=== PATIENT | female | born 2000 | race Caucasian/White ===

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

== ENCOUNTER 2018-03-20 04:34 | Emergency (ER) | payer OTHER ==
[~2018-03-20] VITALS: Ht 157.4 cm; Wt 70.3 kg
[~2018-03-20 04:34] MED LIST changes: +MACROBID100 M1 PO
[2018-03-20 05:42] LABS: BILIRUBIN NEGATIVE (NEGATIVE); BLOOD 2+ (NEGATIVE); CLARITY SL CLOUDY (CLEAR); COLOR YELLOW (YELLOW); GLUCOSE NEGATIVE (NEGATIVE); KETONE NEGATIVE (NEGATIVE); LEUKO ESTERASE TRACE (NEGATIVE); NITRITE NEGATIVE (NEGATIVE); PH 6.5 (5.0-9.0); SPECIFIC GRAVITY <= 1.005 (1.005-1.030); UROBILINOGEN 0.2 E.U./dl (0.2-1.0)
[2018-03-20 05:50] LABS: BACTERIA 2+
== END 2018-03-20 06:58 | disposition home or self-care (01) ==
LOC: ED 04:34
PROVIDERS: Emergency Medicine
DX: O46.93 Antepartum hemorrhage, unspecified, third trimester (principal); N93.0 Postcoital and contact bleeding; Z3A.36 36 weeks gestation of pregnancy

== ENCOUNTER 2018-04-13 15:22 | Emergency (ER) | payer OTHER ==
[~2018-04-13] VITALS: Ht 154.9 cm; Wt 77.1 kg
[2018-04-13] MEDS ORDERED: PROAIR HFA8.5 GM INH (15:28)
[2018-04-13] MEDS ORDERED: ZITHROMAX250 MG PO (15:28)
== END 2018-04-13 16:09 | disposition home or self-care (01) ==
LOC: ED 15:22
DX: O99.513 Diseases of the respiratory system complicating pregnancy, third trimester (principal); J06.9 Acute upper respiratory infection, unspecified; Z87.891 Personal history of nicotine dependence; Z3A.39 39 weeks gestation of pregnancy

== ENCOUNTER 2019-09-30 15:50 | Emergency (ER) | payer OTHER ==
[~2019-09-30] VITALS: Ht 154.9 cm; Wt 68.0 kg
[~2019-09-30 15:50] MED LIST changes: +PROAIR HFA8.5 GM INH; +ZITHROMAX250 MG PO
[2019-09-30] MEDS ORDERED: TYLENOL325 M1 PO (16:17)
[2019-09-30] MEDS ORDERED: AMOXICILLIN500 M3 PO (16:17)
[2019-09-30] MEDS ORDERED: NAPROSYN500 MG PO (16:17)
== END 2019-09-30 16:19 | disposition home or self-care (01) ==
LOC: ED 15:50
DX: K08.89 Other specified disorders of teeth and supporting structures (principal); Z79.899 Other long term (current) drug therapy; Z79.2 Long term (current) use of antibiotics; Z96.5 Presence of tooth-root and mandibular implants

== ENCOUNTER → 2020-05-18 | Outpatient (CLI) | payer OTHER ==
[~2020-05-18] MED LIST changes: +AMOXICILLIN500 M3 PO; +TYLENOL325 M1 PO
== END | disposition home or self-care (01) ==
LOC: COVID19 13:40
PROVIDERS: ATTEND Internal Medicine
DX: Z20.828 Contact with and (suspected) exposure to other viral communicable diseases (principal)

== ENCOUNTER → 2020-08-08 | Outpatient (CLI) | payer OTHER | END | disposition home or self-care (01) | LOC: US 10:00 | PROVIDERS: ATTEND Nurse Practitioner Women's Health | DX: Z34.82 Encounter for supervision of other normal pregnancy, second trimester (principal); Z3A.17 17 weeks gestation of pregnancy ==

== ENCOUNTER → 2020-08-14 | Outpatient (CLI) | payer OTHER ==
[2020-08-16 02:06] LABS: AFP MOM 1.19 (.); AFP VALUE 51.3 ng/mL (.); DIA MOM 0.86 (.); DIA VALUE 136.18 pg/mL (.); DSR (BY AGE) 1 IN 1121 (.); DSR (SECOND TRIMESTER) 1 IN 10000 (.); GEST. AGE ON COLLECTION DATE 18.3 WEEKS (.); GESTATIONAL AGE BASED ON As provided (.); HCG MOM 1.63 (.); HCG VALUE 42339 mIU/mL (.); INSULIN DEPENDENT DIABETES No (.); MATERNAL AGE AT EDD 22.3 yr (.); MULTIPLE GESTATION No (.); OSBR RISK 1 IN 6704 (.); RACE Caucasian (.); T18 RISK Not increased (.); TEST RESULTS *Screen Negative* (.); UE3 MOM 1.87 (.); WEIGHT 162 lbs (.)
== END | disposition home or self-care (01) ==
LOC: LAB 08:01
PROVIDERS: ATTEND Nurse Practitioner Women's Health
DX: O09.299 Supervision of pregnancy with other poor reproductive or obstetric history, unspecified trimester (principal); O99.810 Abnormal glucose complicating pregnancy; Z3A.17 17 weeks gestation of pregnancy; Z14.1 Cystic fibrosis carrier; Z82.79 Family history of other congenital malformations, deformations and chromosomal abnormalities

== ENCOUNTER → 2020-09-30 | Outpatient (CLI) | payer OTHER | END | disposition home or self-care (01) | LOC: US 11:30 | PROVIDERS: ATTEND Obstetrics & Gynecology | DX: O32.1XX0 Maternal care for breech presentation, not applicable or unspecified (principal); Z3A.24 24 weeks gestation of pregnancy ==

== ENCOUNTER → 2020-11-06 | Outpatient (CLI) | payer OTHER | END | disposition home or self-care (01) | LOC: US 13:00 | PROVIDERS: ATTEND Nurse Practitioner Women's Health | DX: Z34.82 Encounter for supervision of other normal pregnancy, second trimester (principal); Z3A.30 30 weeks gestation of pregnancy ==

== ENCOUNTER → 2020-11-11 | Outpatient (CLI) | payer OTHER | END | disposition home or self-care (01) | LOC: LAB 10:32 | PROVIDERS: ATTEND Obstetrics & Gynecology Maternal & Fetal Medicine | DX: O35.2XX0 Maternal care for (suspected) hereditary disease in fetus, not applicable or unspecified (principal); R73.01 Impaired fasting glucose ==

== ENCOUNTER 2025-05-09 23:22 | Emergency (ER) | payer MEDICAID ==
[~2025-05-09] VITALS: Ht 152.4 cm; Wt 65.8 kg
[2025-05-10] MEDS ORDERED: AMOXICILLIN 500 MG CAP PO ONE (00:35)
[2025-05-10] MEDS ORDERED: AMOXICILLIN500 M2 PO (00:35)
[2025-05-10] MEDS ORDERED: MELOXICAM7.5 MG PO (00:35)
== END 2025-05-10 00:56 | disposition home or self-care (01) ==
LOC: ED 23:22
DX: K02.9 Dental caries, unspecified (principal); K04.7 Periapical abscess without sinus; K08.89 Other specified disorders of teeth and supporting structures